=== PATIENT | male | born 1985 | race Two or more races ===

== ENCOUNTER 2024-01-05 10:08 | Emergency (ER) | payer SELFPAY ==
[2024-01-05 10:18] VITALS: BP 107/73; PULSE 73; RESP 16; TEMP 98.2; BMI 32.1
[2024-01-05] MEDS: ASPIRIN 81 MG CHEWABLE TABLETS PO ONE (11:21)
[2024-01-05] MEDS: DEXTROSE 5%-NORMAL SALINE 1,000 ML IV ONE (11:21)
== END 2024-01-05 11:45 | disposition left against medical advice (07) ==
LOC: JER 10:08
DX: R94.31 Abnormal electrocardiogram [ECG] [EKG] (principal); R20.0 Anesthesia of skin; R07.89 Other chest pain
CPT/HCPCS: 93005; 93010; 99284-25

== ENCOUNTER 2024-01-06 13:55 | Emergency (ER) | payer SELFPAY ==
[2024-01-06 14:18] VITALS: TEMP 98.2; BMI 31.9
[2024-01-06 15:25] LABS: BASO % 0.9 % (0-2.0); EOS % 1.3 % (0-4.5); HEMATOCRIT 35.4 % (35.4-49); HEMOGLOBIN 12.2 GM/dL (11.7-16.9); LYMPH % 25.4 % (8-40); MCH 31.7 pg (25.7-33.7); MCHC 34.5 g/dl (32.0-35.9); MEAN CELL VOLUME 91.9 fl (80-96); MEAN PLT VOLUME 8.4 fl (7.5-11.1); MONO % 9.4 % (3.8-10.2); PLATELET COUNT 158 10^3/uL (134-434); RBC 3.85 M/mm3 (4.00-5.60); RDW 17.7 % (11.9-15.9); WHITE BLOOD COUNT 8.7 K/mm3 (4.0-10.0)
[2024-01-06 15:39] LABS: POTASSIUM 3.6 mmol/L (3.5-5.1)
[2024-01-06 15:41] LABS: ALBUMIN 3.4 g/dl (3.4-5.0); BLOOD UREA NITROGEN 9.7 mg/dL (7-18); CALCIUM 8.5 mg/dL (8.5-10.1)
[2024-01-06] MEDS: SODIUM CHLORIDE 1,000 ML IV STA (15:43)
[2024-01-06 15:44] LABS: CREATININE 0.7 mg/dL (0.55-1.3)
[2024-01-06 15:45] LABS: BILIRUBIN,TOTAL 0.6 mg/dL (0.2-1); PHOSPHOROUS 2.4 mg/dL (2.5-4.9)
[2024-01-06 15:46] LABS: TOT PROT 7.4 g/dl (6.4-8.2)
[2024-01-06 16:49] LABS: HIV INTERPRETATION NEGATIVE (NEGATIVE)
[2024-01-06 16:57] VITALS: BP 121/67; PULSE 76; RESP 16
[2024-01-06 18:29] LABS: MAGNESIUM 1.8 mg/dL (1.8-2.4)
== END 2024-01-06 18:01 | disposition left against medical advice (07) ==
LOC: JER 13:55
PROC: 3E0337Z Introduction of Electrolytic and Water Balance Substance into Peripheral Vein, Percutaneous Approach (ICD-10-PCS; principal; 2024-01-06)
DX: F10.929 Alcohol use, unspecified with intoxication, unspecified (principal); Y90.6 Blood alcohol level of 120-199 mg/100 ml; R26.0 Ataxic gait; R41.82 Altered mental status, unspecified; Z20.822 Contact with and (suspected) exposure to COVID-19
CPT/HCPCS: 0241U-QW; 36415; 80053; 80307; 82962; 83735; 84100; 84484; 85025; 86803; 87389; 93005; 93010; 99284-25

== ENCOUNTER 2024-01-06 20:13 | Emergency (ER) | payer SELFPAY ==
[2024-01-06 20:22] VITALS: BP 121/85; PULSE 73; RESP 20; TEMP 97.7; BMI 32.1
[2024-01-06 22:39] LABS: BASO % 0.5 % (0-2.0); EOS % 1.6 % (0-4.5); HEMATOCRIT 35.7 % (35.4-49); HEMOGLOBIN 11.8 GM/dL (11.7-16.9); LYMPH % 37.4 % (8-40); MCHC 33.2 g/dl (32.0-35.9); MEAN CELL VOLUME 93.6 fl (80-96); MEAN PLT VOLUME 8.5 fl (7.5-11.1); NEUT % 53.5 % (42.8-82.8); PLATELET COUNT 147 10^3/uL (134-434); RBC 3.81 M/mm3 (4.00-5.60)
[2024-01-06 22:52] LABS: POTASSIUM 3.3 mmol/L (3.5-5.1)
[2024-01-06 22:54] LABS: CALCIUM 8.4 mg/dL (8.5-10.1)
[2024-01-06 22:55] LABS: ALBUMIN 3.2 g/dl (3.4-5.0); BLOOD UREA NITROGEN 11.5 mg/dL (7-18)
[2024-01-06 22:58] LABS: CREATININE 0.6 mg/dL (0.55-1.3)
[2024-01-06 23:00] LABS: BILIRUBIN,TOTAL 0.6 mg/dL (0.2-1); TOT PROT 6.9 g/dl (6.4-8.2)
[2024-01-07] MEDS ORDERED: POTASSIUM CHLORIDE ORAL LIQUID 20 MEQ/15 ML ONE (00:12)
[2024-01-07] MEDS: POTASSIUM CHLORIDE ORAL LIQUID 20 MEQ/15 ML PO ONE (00:27)
== END 2024-01-07 00:45 | disposition home or self-care (01) ==
LOC: JER 20:13
DX: F10.120 Alcohol abuse with intoxication, uncomplicated (principal); Y90.6 Blood alcohol level of 120-199 mg/100 ml; R07.9 Chest pain, unspecified
CPT/HCPCS: 36415; 80053; 80307; 84484; 85025; 93005; 93010; 99284-25

== ENCOUNTER 2024-01-07 01:23 | Inpatient (IN) | payer SELFPAY ==
[2024-01-07 02:16] VITALS: BMI 33.7
[2024-01-07] MEDS ORDERED: ACETAMINOPHEN 325 MG TABLET (FP) ONE (02:37)
[2024-01-07] MEDS ORDERED: DICYCLOMINE HCL 10 MG CAPSULE PO PRN (02:51)
[2024-01-07] MEDS ORDERED: IBUPROFEN 400 MG TABLET (FP) PO PRN (02:51)
[2024-01-07] MEDS ORDERED: MAG HYDROX/AL HYDROX/SIMETH 30 ML UNIT-DOSE CUP PO PRN (02:51)
[2024-01-07] MEDS ORDERED: LOPERAMIDE HCL 2 MG CAPSULE PO PRN (02:51)
[2024-01-07] MEDS ORDERED: BISMUTH SUBSALICYLATE 524 MG/30 ML PO PRN (02:51)
[2024-01-07] MEDS ORDERED: NALOXONE (NARCAN) HCL 4 MG/0.1 ML SPRAY NS PRN (02:51)
[2024-01-07] MEDS ORDERED: METHOCARBAMOL 500 MG TABLET PO PRN (02:51)
[2024-01-07] MEDS ORDERED: hydrOXYzine PAMOATE 25 MG CAPSULE (FP) PO PRN (02:51)
[2024-01-07] MEDS ORDERED: guaiFENesin 600 MG TABLET.ER (FP) PO PRN (02:51)
[2024-01-07] MEDS ORDERED: ONDANSETRON *ODT* 4 MG TABLET SL PRN (02:51)
[2024-01-07] MEDS ORDERED: BENZONATATE 200 MG CAPSULE PO PRN (02:51)
[2024-01-07] MEDS ORDERED: POLYETHYLENE GLYCOL (HEALTHYLAX) 3350 17 GM PACKET PO PRN (02:51)
[2024-01-07] MEDS ORDERED: BENZOCAINE/MENTHOL (CHLORASEPTIC ) LOZENGE MM PRN (02:51)
[2024-01-07] MEDS ORDERED: MAGNESIUM HYDROX 2400MG/30ML ORAL SUSPENSION 30 ML CUP PO PRN (02:51)
[2024-01-07] MEDS ORDERED: IBUPROFEN 600 MG TABLET (FP) PO PRN (02:51)
[2024-01-07] MEDS ORDERED: NICOTINE POLACRILEX 2 MG GUM BC PRN (02:53)
[2024-01-07] MEDS ORDERED: chlordiazePOXIDE HCL 25 MG CAPSULE PO PRN (02:54)
[2024-01-07] MEDS: NALOXONE (NYS OPIOID OVERDOSE PROGRAM) 4 MG/0.1 ML SPRAY NS ONE (02:55)
[2024-01-07] MEDS: ACETAMINOPHEN 325 MG TABLET (FP) PO PRN (03:05)
[2024-01-07] MEDS ORDERED: chlordiazePOXIDE HCL 25 MG CAPSULE ONE (03:35)
[2024-01-07] MEDS: chlordiazePOXIDE HCL 25 MG CAPSULE PO SCH (05:46)
[2024-01-07 09:02] VITALS: BP 116/79; PULSE 77; RESP 18; TEMP 98.4
[2024-01-07] MEDS: NICOTINE 14 MG/24 HOURS TOPICAL PATCH TD SCH (10:52)
[2024-01-07] MEDS: PRENATAL VITAMINS W/ FOLIC ACID TABLET (FP) PO SCH (10:53)
[2024-01-07] MEDS ORDERED: THIAMINE 100 MG TABLET PO SCH (22:00)
[2024-01-07] MEDS ORDERED: MELATONIN 5 MG TABLETS PO SCH (22:00)
[2024-01-08] MEDS ORDERED: chlordiazePOXIDE HCL 25 MG CAPSULE PO SCH (05:00)
[2024-01-09] MEDS ORDERED: chlordiazePOXIDE HCL 10 MG CAPSULE PO PRN
[2024-01-09] MEDS ORDERED: chlordiazePOXIDE HCL 10 MG CAPSULE PO SCH (05:00)
[2024-01-10] MEDS ORDERED: chlordiazePOXIDE HCL 10 MG CAPSULE PO SCH (05:00)
[2024-01-11] MEDS ORDERED: chlordiazePOXIDE HCL 10 MG CAPSULE PO ONE (05:00)
== END 2024-01-07 12:34 | disposition left against medical advice (07) | DRG 770 ==
LOC: YASAS 01:23 → Y6N 03:19
PROVIDERS: ADMIT Allergy & Immunology; ATTEND Allergy & Immunology
PROC: HZ2ZZZZ Detoxification Services for Substance Abuse Treatment (ICD-10-PCS; principal; 2024-01-07)
DX: F10.230 Alcohol dependence with withdrawal, uncomplicated (principal); F14.20 Cocaine dependence, uncomplicated; F12.20 Cannabis dependence, uncomplicated; F17.210 Nicotine dependence, cigarettes, uncomplicated; F32.A Depression, unspecified; F41.9 Anxiety disorder, unspecified; F90.9 Attention-deficit hyperactivity disorder, unspecified type; G47.00 Insomnia, unspecified
CPT/HCPCS: 36415; 80305; 80307; 93005; 93010

== ENCOUNTER 2024-01-08 02:49 | Emergency (ER) | payer SELFPAY ==
[2024-01-08 03:47] VITALS: BP 111/79; PULSE 72; RESP 16; TEMP 97.8; BMI 34.0
== END 2024-01-08 04:34 | disposition home or self-care (01) ==
LOC: JER 02:49
DX: F10.120 Alcohol abuse with intoxication, uncomplicated (principal); Y90.9 Presence of alcohol in blood, level not specified; R07.9 Chest pain, unspecified
CPT/HCPCS: 93005; 93010; 99284-25

== ENCOUNTER 2024-01-09 03:31 | Emergency (ER) | payer SELFPAY ==
[2024-01-09 03:39] VITALS: BP 141/83; PULSE 87; RESP 18; TEMP 98; BMI 28.2
[2024-01-09] MEDS ORDERED: ACETAMINOPHEN INJECTION 100 ML ONE (04:05)
[2024-01-09] MEDS ORDERED: DALBAVANCIN HCL 500 MG VIAL (RESTRICTED TO ID ONLY) IVPB ONE (04:05)
[2024-01-09] MEDS: DALBAVANCIN HCL 1,500 MG in DEXTROSE 5%-WATER - 500 ML IVPB ONE (04:40)
[2024-01-09] MEDS: ACETAMINOPHEN 1000 MG/100 ML BAG IVPB ONE (04:40)
== END 2024-01-09 05:23 | disposition home or self-care (01) ==
LOC: JER 03:31
PROC: 3E03329 Introduction of Other Anti-infective into Peripheral Vein, Percutaneous Approach (ICD-10-PCS; principal; 2024-01-09)
PROC: 3E033NZ Introduction of Analgesics, Hypnotics, Sedatives into Peripheral Vein, Percutaneous Approach (ICD-10-PCS; 2024-01-09)
DX: L03.113 Cellulitis of right upper limb (principal); M79.641 Pain in right hand
CPT/HCPCS: 99284-25; J0131; J0875

== ENCOUNTER 2024-01-09 08:27 | Inpatient (IN) | payer SELFPAY ==
[2024-01-09 09:02] VITALS: BMI 33.6
[2024-01-09] MEDS ORDERED: P-EPHED 60MG/TRIPROLIDI 2.5MG TABLET PO PRN (09:15)
[2024-01-09] MEDS ORDERED: BISMUTH SUBSALICYLATE 262 MG/15 ML BTL PO PRN (09:15)
[2024-01-09] MEDS ORDERED: POLYETHYLENE GLYCOL (HEALTHYLAX) 3350 17 GM PACKET PO PRN (09:15)
[2024-01-09] MEDS ORDERED: BENZOCAINE/MENTHOL (CHLORASEPTIC ) LOZENGE MM PRN (09:15)
[2024-01-09] MEDS ORDERED: DICYCLOMINE HCL 10 MG CAPSULE PO PRN (09:15)
[2024-01-09] MEDS ORDERED: IBUPROFEN 400 MG TABLET (FP) PO PRN (09:15)
[2024-01-09] MEDS ORDERED: NICOTINE POLACRILEX 2 MG GUM BUC PRN (09:15)
[2024-01-09] MEDS ORDERED: LOPERAMIDE HCL 2 MG CAPSULE PO PRN (09:15)
[2024-01-09] MEDS ORDERED: guaiFENesin 600 MG TABLET.ER (FP) PO PRN (09:15)
[2024-01-09] MEDS ORDERED: MAG HYDROX/AL HYDROX/SIMETH 30 ML UNIT-DOSE CUP PO PRN (09:15)
[2024-01-09] MEDS ORDERED: BENZONATATE 200 MG CAPSULE PO PRN (09:15)
[2024-01-09] MEDS ORDERED: MAGNESIUM HYDROX 2400MG/30ML ORAL SUSPENSION 30 ML CUP PO PRN (09:15)
[2024-01-09] MEDS ORDERED: NICOTINE POLACRILEX 2 MG LOZENGE BC PRN (09:15)
[2024-01-09] MEDS ORDERED: levETIRAcetam 500 MG TABLET (FP) PO ONE (09:34)
[2024-01-09] MEDS ORDERED: METHOCARBAMOL 500 MG TABLET ONE (09:34)
[2024-01-09] MEDS ORDERED: LORazepam 2 MG TABLET ONE (09:35)
[2024-01-09] MEDS ORDERED: PRENATAL VITAMINS W/ FOLIC ACID TABLET (FP) PO ONE (09:35)
[2024-01-09] MEDS: levETIRAcetam 500 MG TABLET (FP) PO SCH (09:45)
[2024-01-09] MEDS: LORazepam 2 MG TABLET PO ONE (09:45)
[2024-01-09] MEDS: PRENATAL VITAMINS W/ FOLIC ACID TABLET (FP) PO SCH (09:45)
[2024-01-09] MEDS: propRANOLol HCL 10 MG TABLET PO ONE (09:45)
[2024-01-09] MEDS: BACITRACIN 0.9 GM PACKET TP SCH (09:45)
[2024-01-09] MEDS: METHOCARBAMOL 500 MG TABLET PO PRN (09:45)
[2024-01-09] MEDS ORDERED: diazePAM 5 MG TABLET ONE (10:13)
[2024-01-09] MEDS: diazePAM 5 MG TABLET PO SCH (10:16)
[2024-01-09] MEDS ORDERED: ONDANSETRON *ODT* 4 MG TABLET ONE (10:19)
[2024-01-09] MEDS: ONDANSETRON *ODT* 4 MG TABLET SL PRN (10:21)
[2024-01-09] MEDS: hydrOXYzine PAMOATE 25 MG CAPSULE (FP) PO PRN (12:31)
[2024-01-09] MEDS: IBUPROFEN 600 MG TABLET (FP) PO PRN (12:32)
[2024-01-09] MEDS: GABAPENTIN 300 MG CAPSULE PO SCH (14:07)
[2024-01-09] MEDS: diazePAM 5 MG TABLET PO PRN (14:22)
[2024-01-09] MEDS ORDERED: GABAPENTIN 100 MG CAPSULE PO PRN (14:27)
[2024-01-09] MEDS ORDERED: METHYL SALICYLATE/MENTHOL 30 GM TUBE TP PRN (14:28)
[2024-01-09] MEDS: LIDOCAINE 5% TOPICAL PATCH TP SCH (14:46)
[2024-01-09] MEDS: MIRTAZAPINE 15 MG TABLET (FP) PO SCH (22:38)
[2024-01-09] MEDS: THIAMINE 100 MG TABLET PO SCH (22:43)
[2024-01-09] MEDS: MELATONIN 5 MG TABLETS PO SCH (22:44)
[2024-01-09] MEDS: LIDOCAINE PATCH REMOVAL MC SCH (22:45)
[2024-01-10] MEDS: POTASSIUM CHLORIDE ORAL LIQUID 20 MEQ/15 ML PO ONE (14:30)
[2024-01-10] MEDS: diazePAM 5 MG TABLET PO SCH ×2 (16:01→17:28)
[2024-01-10] MEDS ORDERED: diazePAM 5 MG TABLET PO SCH (17:00)
[2024-01-10] MEDS: ACETAMINOPHEN 325 MG TABLET (FP) PO PRN (17:32)
[2024-01-10] MEDS: hydrOXYzine PAMOATE 50 MG CAPSULE (FP) PO PRN (17:36)
[2024-01-10] MEDS: GABAPENTIN 300 MG CAPSULE PO SCH (22:11)
[2024-01-10] MEDS: POTASSIUM CHLORIDE ORAL LIQUID 20 MEQ/15 ML PO SCH (22:11)
[2024-01-11] MEDS: diazePAM 5 MG TABLET PO SCH ×2 (05:44→09:13)
[2024-01-11] MEDS: LORazepam 0.5 MG TABLET PO SCH (09:06)
[2024-01-11] MEDS: LORazepam 0.5 MG TABLET PO ONE (09:15)
[2024-01-11] MEDS: LORazepam 2 MG TABLET PO ONE (11:39)
[2024-01-11] MEDS: diazePAM 5 MG TABLET PO PRN (18:49)
[2024-01-11] MEDS: SUVOREXANT 10 MG TABLET PO PRN (22:30)
[2024-01-12] MEDS: diazePAM 5 MG TABLET PO SCH (05:51)
[2024-01-12 06:47] VITALS: RESP 16
[2024-01-12 11:29] VITALS: TEMP 98.4
[2024-01-12 12:59] VITALS: BP 105/72; PULSE 89
[2024-01-12] MEDS: NALOXONE (NYS OPIOID OVERDOSE PROGRAM) 4 MG/0.1 ML SPRAY NS PRN (16:05)
[2024-01-13] MEDS ORDERED: diazePAM 5 MG TABLET PO ONE (06:00)
== END 2024-01-12 16:27 | disposition home or self-care (01) | DRG 774 ==
LOC: YASAS 08:27 → Y6N 09:50
PROVIDERS: ADMIT Allergy & Immunology; ATTEND Surgery
PROC: HZ2ZZZZ Detoxification Services for Substance Abuse Treatment (ICD-10-PCS; principal; 2024-01-09)
DX: F10.230 Alcohol dependence with withdrawal, uncomplicated (principal); F14.20 Cocaine dependence, uncomplicated; F15.20 Other stimulant dependence, uncomplicated; F12.20 Cannabis dependence, uncomplicated; F17.210 Nicotine dependence, cigarettes, uncomplicated; F19.282 Other psychoactive substance dependence with psychoactive substance-induced sleep disorder; F19.280 Other psychoactive substance dependence with psychoactive substance-induced anxiety disorder; F19.24 Other psychoactive substance dependence with psychoactive substance-induced mood disorder; F31.81 Bipolar II disorder; F41.9 Anxiety disorder, unspecified; F90.9 Attention-deficit hyperactivity disorder, unspecified type; E87.6 Hypokalemia; M54.50 Low back pain, unspecified; G89.29 Other chronic pain; Z56.0 Unemployment, unspecified; Z59.00 Homelessness unspecified
CPT/HCPCS: 36415; 80305; 80307; 84132; 86780; Q0162

== ENCOUNTER 2024-06-12 20:38 | Inpatient (IN) | payer OTHER ==
[2024-06-12 21:12] VITALS: BMI 35.4
[2024-06-12] MEDS ORDERED: chlordiazePOXIDE HCL 25 MG CAPSULE PO PRN (21:15)
[2024-06-12] MEDS ORDERED: BISMUTH SUBSALICYLATE 524 MG/30 ML PO PRN (21:17)
[2024-06-12] MEDS ORDERED: IBUPROFEN 400 MG TABLET (FP) PO PRN (21:17)
[2024-06-12] MEDS ORDERED: METHOCARBAMOL 500 MG TABLET PO PRN (21:17)
[2024-06-12] MEDS ORDERED: BENZONATATE 200 MG CAPSULE PO PRN (21:17)
[2024-06-12] MEDS ORDERED: IBUPROFEN 600 MG TABLET (FP) PO PRN (21:17)
[2024-06-12] MEDS ORDERED: POLYETHYLENE GLYCOL (HEALTHYLAX) 3350 17 GM PACKET PO PRN (21:17)
[2024-06-12] MEDS ORDERED: BENZOCAINE/MENTHOL (CHLORASEPTIC ) LOZENGE MM PRN (21:17)
[2024-06-12] MEDS ORDERED: DICYCLOMINE HCL 10 MG CAPSULE PO PRN (21:17)
[2024-06-12] MEDS ORDERED: NICOTINE POLACRILEX 2 MG GUM BUC PRN (21:17)
[2024-06-12] MEDS ORDERED: ONDANSETRON *ODT* 4 MG TABLET SL PRN (21:17)
[2024-06-12] MEDS ORDERED: hydrOXYzine PAMOATE 25 MG CAPSULE (FP) PO PRN (21:17)
[2024-06-12] MEDS ORDERED: LOPERAMIDE HCL 2 MG CAPSULE PO PRN (21:17)
[2024-06-12] MEDS ORDERED: guaiFENesin 600 MG TABLET.ER (FP) PO PRN (21:17)
[2024-06-12] MEDS ORDERED: NALOXONE (NARCAN) HCL 4 MG/0.1 ML SPRAY NS PRN (21:17)
[2024-06-12] MEDS ORDERED: NICOTINE POLACRILEX 2 MG LOZENGE BC PRN (21:17)
[2024-06-12] MEDS ORDERED: MAGNESIUM HYDROX 2400MG/30ML ORAL SUSPENSION 30 ML CUP PO PRN (21:17)
[2024-06-12] MEDS ORDERED: ACETAMINOPHEN 325 MG TABLET (FP) PO PRN (21:17)
[2024-06-12] MEDS ORDERED: MAG HYDROX/AL HYDROX/SIMETH 30 ML UNIT-DOSE CUP PO PRN (21:17)
[2024-06-12] MEDS: MELATONIN 5 MG TABLETS PO SCH (23:06)
[2024-06-12] MEDS: chlordiazePOXIDE HCL 25 MG CAPSULE PO SCH (23:07)
[2024-06-12] MEDS: levETIRAcetam 500 MG TABLET (FP) PO SCH (23:07)
[2024-06-12] MEDS: THIAMINE 100 MG TABLET PO SCH (23:08)
[2024-06-13 09:18] VITALS: BP 109/72; PULSE 79; RESP 20; TEMP 98.2
[2024-06-13] MEDS: PRENATAL VITAMINS W/ FOLIC ACID TABLET (FP) PO SCH (11:00)
[2024-06-14] MEDS ORDERED: chlordiazePOXIDE HCL 25 MG CAPSULE PO SCH (05:00)
[2024-06-15] MEDS ORDERED: chlordiazePOXIDE HCL 10 MG CAPSULE PO PRN
[2024-06-15] MEDS ORDERED: chlordiazePOXIDE HCL 10 MG CAPSULE PO SCH (05:00)
[2024-06-16] MEDS ORDERED: chlordiazePOXIDE HCL 10 MG CAPSULE PO SCH (05:00)
[2024-06-17] MEDS ORDERED: chlordiazePOXIDE HCL 10 MG CAPSULE PO ONE (05:00)
== END 2024-06-13 11:00 | disposition left against medical advice (07) | DRG 770 ==
LOC: YASAS 20:38 → Y3N 21:40
PROVIDERS: ADMIT Allergy & Immunology; ATTEND Allergy & Immunology
PROC: HZ2ZZZZ Detoxification Services for Substance Abuse Treatment (ICD-10-PCS; principal; 2024-06-11)
DX: F10.230 Alcohol dependence with withdrawal, uncomplicated (principal); F17.210 Nicotine dependence, cigarettes, uncomplicated; F31.9 Bipolar disorder, unspecified; F41.9 Anxiety disorder, unspecified; G47.00 Insomnia, unspecified
CPT/HCPCS: 80305; 80307

== ENCOUNTER 2024-06-18 09:41 | Inpatient (IN) | payer OTHER ==
[2024-06-18 10:15] VITALS: BMI 34.7
[2024-06-18] MEDS ORDERED: BENZONATATE 200 MG CAPSULE PO PRN (10:33)
[2024-06-18] MEDS ORDERED: POLYETHYLENE GLYCOL (HEALTHYLAX) 3350 17 GM PACKET PO PRN (10:33)
[2024-06-18] MEDS ORDERED: NICOTINE POLACRILEX 2 MG LOZENGE BC PRN (10:33)
[2024-06-18] MEDS ORDERED: NICOTINE POLACRILEX 2 MG GUM BUC PRN (10:33)
[2024-06-18] MEDS ORDERED: NALOXONE (NARCAN) HCL 4 MG/0.1 ML SPRAY NS PRN (10:33)
[2024-06-18] MEDS ORDERED: MAGNESIUM HYDROX 2400MG/30ML ORAL SUSPENSION 30 ML CUP PO PRN (10:33)
[2024-06-18] MEDS ORDERED: LOPERAMIDE HCL 2 MG CAPSULE PO PRN (10:33)
[2024-06-18] MEDS ORDERED: DICYCLOMINE HCL 10 MG CAPSULE PO PRN (10:33)
[2024-06-18] MEDS ORDERED: IBUPROFEN 400 MG TABLET (FP) PO PRN (10:33)
[2024-06-18] MEDS ORDERED: MAG HYDROX/AL HYDROX/SIMETH 30 ML UNIT-DOSE CUP PO PRN (10:33)
[2024-06-18] MEDS ORDERED: P-EPHED 60MG/TRIPROLIDI 2.5MG TABLET PO PRN (10:33)
[2024-06-18] MEDS ORDERED: METOPROLOL TARTRATE 25 MG TABLET (FP) ONE (11:34)
[2024-06-18] MEDS: METOPROLOL TARTRATE 25 MG TABLET (FP) PO ONE (11:36)
[2024-06-18] MEDS: chlordiazePOXIDE HCL 25 MG CAPSULE PO ONE (19:03)
[2024-06-18] MEDS: IBUPROFEN 600 MG TABLET (FP) PO PRN (19:08)
[2024-06-18] MEDS: METHOCARBAMOL 500 MG TABLET PO PRN (20:19)
[2024-06-18] MEDS: hydrOXYzine PAMOATE 25 MG CAPSULE (FP) PO PRN (20:19)
[2024-06-18] MEDS: chlordiazePOXIDE HCL 25 MG CAPSULE PO SCH (22:21)
[2024-06-18] MEDS: THIAMINE 100 MG TABLET PO SCH (22:22)
[2024-06-18] MEDS: MELATONIN 5 MG TABLETS PO SCH (22:22)
[2024-06-19] MEDS: PRENATAL VITAMINS W/ FOLIC ACID TABLET (FP) PO SCH (10:03)
[2024-06-19] MEDS: amLODIPine BESYLATE 5 MG TABLET (FP) PO SCH (10:03)
[2024-06-19] MEDS: ONDANSETRON *ODT* 4 MG TABLET SL PRN (10:21)
[2024-06-19 10:56] LABS: HEMATOCRIT 41.4 % (40.1-51.0); MCHC 33.8 g/dl (32.3-36.5); MEAN PLT VOLUME 11.3 fl (9.4-12.4); PLATELET COUNT # 213 x10^3/uL (163-337); RDW 14.5 % (12.0-15.6)
[2024-06-19 11:03] LABS: POTASSIUM 3.8 mmol/L (3.5-5.1)
[2024-06-19 11:13] LABS: ALBUMIN 3.8 g/dl (3.4-5.0); BLOOD UREA NITROGEN 12.8 mg/dL (7-18)
[2024-06-19 11:16] LABS: CREATININE 0.6 mg/dL (0.55-1.3)
[2024-06-19 11:17] LABS: BILIRUBIN,TOTAL 0.8 mg/dL (0.2-1); TOT PROT 7.9 g/dl (6.4-8.2)
[2024-06-19] MEDS: GABAPENTIN 300 MG CAPSULE PO SCH (13:16)
[2024-06-19] MEDS: BISMUTH SUBSALICYLATE 262 MG/15 ML BTL PO PRN (14:29)
[2024-06-19] MEDS: chlordiazePOXIDE HCL 25 MG CAPSULE PO PRN (19:34)
[2024-06-19] MEDS: MIRTAZAPINE 15 MG TABLET (FP) PO SCH (22:27)
[2024-06-20] MEDS: chlordiazePOXIDE HCL 25 MG CAPSULE PO SCH (06:00)
[2024-06-20] MEDS: hydrOXYzine PAMOATE 25 MG CAPSULE (FP) PO PRN (13:12)
[2024-06-20] MEDS: METHOCARBAMOL 500 MG TABLET PO ONE (19:18)
[2024-06-20] MEDS: hydrOXYzine PAMOATE 25 MG CAPSULE (FP) PO ONE (20:22)
[2024-06-20] MEDS: BENZOCAINE/MENTHOL (CHLORASEPTIC ) LOZENGE MM PRN (20:27)
[2024-06-20] MEDS: guaiFENesin 600 MG TABLET.ER (FP) PO PRN (20:27)
[2024-06-20] MEDS: ACETAMINOPHEN 325 MG TABLET (FP) PO PRN (21:20)
[2024-06-20] MEDS: cloNIDine HCL 0.1 MG TABLET PO ONE (21:20)
[2024-06-21] MEDS: chlordiazePOXIDE HCL 10 MG CAPSULE PO SCH (05:48)
[2024-06-21] MEDS: chlordiazePOXIDE HCL 10 MG CAPSULE PO PRN (08:04)
[2024-06-22] MEDS: chlordiazePOXIDE HCL 10 MG CAPSULE PO SCH (05:52)
[2024-06-22] MEDS: MELATONIN 5 MG TABLETS PO ONE (22:14)
[2024-06-23] MEDS: chlordiazePOXIDE HCL 10 MG CAPSULE PO ONE (06:02)
[2024-06-23 07:33] VITALS: TEMP 97.7
[2024-06-23 08:49] VITALS: BP 135/91; PULSE 81; RESP 18
== END 2024-06-23 09:16 | disposition home or self-care (01) | DRG 774 ==
LOC: YASAS 09:41 → Y6N 11:21
PROVIDERS: ADMIT Allergy & Immunology; ATTEND Allergy & Immunology
PROC: HZ2ZZZZ Detoxification Services for Substance Abuse Treatment (ICD-10-PCS; principal; 2024-06-18)
DX: F10.230 Alcohol dependence with withdrawal, uncomplicated (principal); F14.20 Cocaine dependence, uncomplicated; F15.20 Other stimulant dependence, uncomplicated; F17.210 Nicotine dependence, cigarettes, uncomplicated; F10.282 Alcohol dependence with alcohol-induced sleep disorder; F10.280 Alcohol dependence with alcohol-induced anxiety disorder; F10.24 Alcohol dependence with alcohol-induced mood disorder; F31.81 Bipolar II disorder; F90.9 Attention-deficit hyperactivity disorder, unspecified type; R74.01 Elevation of levels of liver transaminase levels; Z59.00 Homelessness unspecified; Z56.0 Unemployment, unspecified
CPT/HCPCS: 36415; 80053; 80305; 80307; 85027; 86780; Q0162